=== PATIENT | male | born 1985 | race American Indian/Alaskan Native ===

== ENCOUNTER 2017-07-31 21:26 | Emergency (ER) | payer SELFPAY ==
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
[2017-07-31 22:57] LABS: BASO # 0.1 K/uL (0.0-0.2); BASO % 0.8 % (0.0-2.0); EOS # 0.1 K/uL (0.0-0.7); EOS % 1.6 % (0.0-4.0); HEMATOCRIT 45.9 % (35.0-51.0); LYMPH # 4.7 K/uL (1.0-4.3); LYMPH % 53.8 % (20.0-40.0); MEAN CELL VOLUME 89.3 fL (80.0-94.0); MEAN CORPUSCULAR HEMOGLOBIN 29.8 pg (27.0-31.0); MEAN CORPUSCULAR HGB CONC 33.4 g/dL (33.0-37.0); MEAN PLATELET VOLUME 11.5 fL (7.2-11.7); MONO # 0.5 K/uL (0.0-0.8); RED CELL DISTRIBUTION WIDTH 15.2 % (11.5-14.5); WHITE BLOOD COUNT 8.8 K/uL (4.8-10.8)
[2017-07-31 23:14] LABS: ALB/GLOB RATIO 1.3 (1.0-2.1); ALKALINE PHOSPHATASE 140 U/L (38-126); ALT/SGPT 163 U/L (21-72); AST/SGOT 128 U/L (17-59); BILIRUBIN,TOTAL 0.7 mg/dL (0.2-1.3); BLOOD UREA NITROGEN 12 mg/dL (9-20); CALCIUM 8.4 mg/dl (8.6-10.4); CARBON DIOXIDE 27 mmol/L (22-30); CHLORIDE 99 mmol/L (98-107); GFR AFRICAN-AMERICAN > 60; GLUCOSE,RANDOM 91 mg/dL (75-110); POTASSIUM 3.7 mmol/L (3.6-5.2); SODIUM 141 mmol/L (132-148); TOTAL PROTEIN 8.2 g/dL (6.3-8.3)
[2017-08-01 00:54] LABS: ALCOHOL SERUM 405 mg/dl (0-10)
[2017-08-01 04:00] VITALS: RESP 16
[2017-08-01 05:53] VITALS: BP 94/62; PULSE 102; TEMP 98.8; O2SAT 97
== END 2017-08-01 06:05 | disposition home or self-care (01) ==
LOC: C.ER 21:26
DX: F10.129 Alcohol abuse with intoxication, unspecified (principal); Y90.8 Blood alcohol level of 240 mg/100 ml or more
CPT/HCPCS: 80053; 85025; 99284; G0480

== ENCOUNTER 2018-01-28 16:50 | Emergency (ER) | payer SELFPAY ==
[2018-01-28 16:58] VITALS: BP 121/76; PULSE 102; RESP 20; TEMP 98.1; O2SAT 100
--- NOTE | 2018-01-28 16:58 | C.PDOC ---
History Of Present Illness 33 y/o male with history of ETOH abuse presents to ED in an acute ETOH intoxication. Patient is well known to ED with similar complaints. Upon my arrival for evaluation patient is in no acute distress and eating a sandwich. Time Seen by Provider: 01/28/18 16:52 Chief Complaint (Nursing): Substance Abuse History Per: Patient History/Exam Limitations: no limitations Onset/Duration Of Symptoms: Days Current Symptoms Are (Timing): Still Present Suicide/Self Injury Attempted (Context): None Modifying Factor(s): Alcohol Past Medical History Reviewed: Historical Data, Nursing Documentation, Vital Signs Vital Signs: Last Vital Signs Temp 98.1 F 01/28/18 16:53 Pulse 102 H 01/28/18 16:53 Resp 20 01/28/18 16:53 BP 121/76 01/28/18 16:53 Pulse Ox 100 01/28/18 16:58 - [facility] Procedures CLOSURE SKIN & SUBCUTANEOUS NEC (09/25/13) INJECT/INFUSE NEC (08/28/13) TETANUS TOXOID ADMINIST (09/02/14) Family History: States: Unknown Family Hx - Social History Hx Tobacco Use: No (UNKNOWN) Hx Alcohol Use: Yes (Pt uncooperative) Hx Substance Use: No (unknown) - Immunization History Hx Tetanus Toxoid Vaccination: No (unknown) Hx Influenza Vaccination: No (unknown) Hx Pneumococcal Vaccination: No (unknown) Review Of Systems Except As Marked, All Systems Reviewed And Found Negative. Physical Exam - Physical Exam Appears: Non-toxic, No Acute Distress Skin: Warm, Dry, No Rash Head: Atraumatic, Normacephalic Eye(s): bilateral: Normal Inspection Oral Mucosa: Moist Neck: Normal ROM, Supple Cardiovascular: Rhythm Regular Respiratory: Normal Breath Sounds, No Rales, No Rhonchi, No Wheezing Gastrointestinal/Abdominal: Soft, No Tenderness, No Guarding, No Rebound Extremity: Normal ROM, Capillary Refill (<2 seconds) Neurological/Psych: Oriented x3, Normal Speech, Normal Cognition Gait: Steady ED Course And Treatment O2 Sat by Pulse Oximetry: 100 (RA) Pulse Ox Interpretation: Normal Medical Decision Making Medical Decision Making: ambulatory steady gait taking po. stable for dc Disposition - Disposition Referrals: [facility] [Outside] Disposition: HOME/ ROUTINE Disposition Time: 04:00 Condition: STABLE Additional Instructions: return to er with worsening symptoms or concerns. Instructions: Alcohol Use - When Is Drinking a Problem?, Alcohol Poisoning (DC) Forms: [employer] (Amharic) - Clinical Impression Clinical Impression: Alcohol abuse - Scribe Statement The provider has reviewed the documentation as recorded by the Antibdayton Ojeda All medical record entries made by the Antibe were at my direction and personally dictated by me. I have reviewed the chart and agree that the record accurately reflects my personal performance of the history, physical exam, medical decision making, and the department course for this patient. I have also personally directed, reviewed, and agree with the discharge instructions and disposition.
== END 2018-01-28 17:07 | disposition home or self-care (01) ==
LOC: C.ER 16:50
DX: F10.129 Alcohol abuse with intoxication, unspecified (principal); Y90.9 Presence of alcohol in blood, level not specified

== ENCOUNTER 2018-01-28 18:31 | Emergency (ER) | payer SELFPAY ==
[2018-01-28 18:37] VITALS: BP 137/86; PULSE 112; RESP 20; TEMP 98.6; O2SAT 99
== END 2018-01-28 18:35 | disposition left against medical advice (07) ==
LOC: C.ER 18:31
DX: Z02.89 Encounter for other administrative examinations (principal); F19.10 Other psychoactive substance abuse, uncomplicated

== ENCOUNTER 2018-03-07 14:40 | Emergency (ER) | payer SELFPAY ==
[2018-03-07 14:59] VITALS: TEMP 97.9
[2018-03-07 15:00] VITALS: BMI 23.6
--- NOTE | 2018-03-07 16:29 | C.PDOC ---
History Of Present Illness 33-year-old male is brought to the ED by ambulance for evaluation of public alcohol intoxication for an unknown duration. Patient is familiar to this ED and has had many prior evaluations for the same. Patient admits to drinking earlier today and denies any new injuries or complaints at this time. Time Seen by Provider: 03/07/18 15:08 Chief Complaint (Nursing): Substance Abuse History Per: Patient, EMS History/Exam Limitations: intoxication Onset/Duration Of Symptoms: Hrs Current Symptoms Are (Timing): Still Present Suicide/Self Injury Attempted (Context): None Modifying Factor(s): Alcohol Associated Symptoms: denies: Suicidal Thoughts, Suicidal Plan Involuntary Hold By: None Recent travel outside of the [place]: No Additional History Per: Patient, EMS Past Medical History Reviewed: Historical Data, Nursing Documentation, Vital Signs Vital Signs: Last Vital Signs Temp 97.9 F 03/07/18 14:48 Pulse 96 H 03/07/18 18:11 Resp 16 03/07/18 18:11 BP 101/52 L 03/07/18 18:11 Pulse Ox 100 03/07/18 18:11 - Medical History PMH: No Chronic Diseases Surgical History: No Surg Hx - [facility] Procedures CLOSURE SKIN & SUBCUTANEOUS NEC (09/25/13) INJECT/INFUSE NEC (08/28/13) TETANUS TOXOID ADMINIST (09/02/14) Family History: States: Unknown Family Hx - Social History Hx Tobacco Use: No (UNKNOWN) Hx Alcohol Use: Yes (Pt uncooperative) Hx Substance Use: Yes (unknown) - Immunization History Hx Tetanus Toxoid Vaccination: Yes (unknown) Hx Influenza Vaccination: Yes (unknown) Hx Pneumococcal Vaccination: Yes (unknown) Review Of Systems Psych: Positive for: Other (EtOH intoxication ). Negative for: Suicidal ideation Physical Exam - Physical Exam Appears: Non-toxic, No Acute Distress, Other (visibly intoxicated, foul-smelling , disheveled ) Skin: Normal Color, Warm, Dry Head: Atraumatic, Normacephalic Eye(s): bilateral: Normal Inspection Oral Mucosa: Moist Neck: Supple Chest: Symmetrical, No Deformity, No Tenderness Cardiovascular: Rhythm Regular Respiratory: Normal Breath Sounds, No Accessory Muscle Use Extremity: Normal ROM, Capillary Refill (less than 2 seconds ) Neurological/Psych: Other (arousable to touch and verbal stimuli ) ED Course And Treatment O2 Sat by Pulse Oximetry: 97 (on RA) Pulse Ox Interpretation: Normal Reevaluation Time: 19:48 Reassessment Condition: Improved (awake, alert, ambulating in ED, argumentative and confrontational with staff, Security required to re-direct pt for his safety ) Disposition Doctor Will See Patient In The: Office Counseled Patient/Family Regarding: Studies Performed, Diagnosis - Disposition Disposition: HOME/ ROUTINE Disposition Time: 19:49 Condition: GOOD Forms: [facility] (Spanish) - Clinical Impression Clinical Impression: Alcohol abuse - Scribe Statement The provider has reviewed the documentation as recorded by the Scribe (Eva Ulloa) Provider Attestation: All medical record entries made by the Scribe were at my direction and personally dictated by me. I have reviewed the chart and agree that the record accurately reflects my personal performance of the history, physical exam, medical decision making, and the department course for this patient. I have also personally directed, reviewed, and agree with the discharge instructions and disposition.
[2018-03-07 18:12] VITALS: PULSE 96
[2018-03-07 20:05] VITALS: BP 101/55; RESP 18; O2SAT 100
== END 2018-03-07 19:55 | disposition home or self-care (01) ==
LOC: C.ER 14:40
DX: F10.129 Alcohol abuse with intoxication, unspecified (principal); Y90.9 Presence of alcohol in blood, level not specified

== ENCOUNTER 2018-08-15 02:32 | Emergency (ER) | payer SELFPAY ==
[2018-08-15 02:32] VITALS: BMI 23.6
--- NOTE | 2018-08-15 02:39 | C.PDOC ---
Time Seen by Provider: 08/15/18 02:38 Past Medical History - [facility] Procedures CLOSURE SKIN & SUBCUTANEOUS NEC (09/25/13) INJECT/INFUSE NEC (08/28/13) TETANUS TOXOID ADMINIST (09/02/14) Family History: States: Unknown Family Hx - Social History Hx Tobacco Use: No (UNKNOWN) Hx Alcohol Use: Yes (Pt uncooperative) Hx Substance Use: Yes (unknown) - Immunization History Hx Tetanus Toxoid Vaccination: Yes (unknown) Hx Influenza Vaccination: Yes (unknown) Hx Pneumococcal Vaccination: Yes (unknown) Disposition Counseled Patient/Family Regarding: Studies Performed, Diagnosis - Disposition Disposition Time: 02:39
[2018-08-15 02:50] VITALS: BP 120/85; PULSE 90; RESP 20; TEMP 97.7; O2SAT 99
== END 2018-08-15 02:50 | disposition left against medical advice (07) ==
LOC: C.ER 02:32
DX: Z02.89 Encounter for other administrative examinations (principal); F10.10 Alcohol abuse, uncomplicated

== ENCOUNTER 2018-08-16 17:45 | Emergency (ER) | payer SELFPAY ==
[2018-08-16 17:45] VITALS: BMI 23.6
[2018-08-16 17:55] VITALS: O2SAT 97
[2018-08-16 19:48] VITALS: BP 110/60; PULSE 80; RESP 14; TEMP 97.8
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
== END 2018-08-16 19:48 | disposition home or self-care (01) ==
LOC: C.ER 17:45
DX: F10.129 Alcohol abuse with intoxication, unspecified (principal); Y90.9 Presence of alcohol in blood, level not specified

== ENCOUNTER 2018-08-17 03:35 | Emergency (ER) | payer SELFPAY ==
[2018-08-17 03:36] VITALS: BMI 23.6
[2018-08-17 04:02] VITALS: RESP 20; TEMP 97.4; O2SAT 97
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
[2018-08-17 06:46] VITALS: BP 128/78; PULSE 88
== END 2018-08-17 06:44 | disposition home or self-care (01) ==
LOC: C.ER 03:35
DX: F10.10 Alcohol abuse, uncomplicated (principal)